=== PATIENT | female | born 1960 | race Caucasian/White ===

== ENCOUNTER → 2021-01-12 | Outpatient (CLI) | payer MEDICARE, OTHER ==
[~2021-01-12] MED LIST: CARAFATE1 GM/10 ML PO; PROTONIX40 MG PO; ZOFRAN ODT 4 MG4 MG PO
== END ==
LOC: RAD 12:31
DX: M79.18 Myalgia, other site (principal)
CPT/HCPCS: 72220

== ENCOUNTER → 2021-04-23 | Outpatient (CLI) | payer MEDICARE, OTHER | LOC: MAMO 10:00 → US 10:00 → MAMO 10:16 | DX: N63.20 Unspecified lump in the left breast, unspecified quadrant (principal) | CPT/HCPCS: 76641-LT; 77066; G0279 ==

== ENCOUNTER 2021-06-20 08:42 | Emergency (ER) | payer MEDICARE, OTHER ==
[2021-06-20 09:25] LABS: HEMOGLOBIN 12.3 gm/dl (12.3-15.3); RED BLOOD COUNT 4.05 M/UL (4.00-5.10); WHITE BLOOD COUNT 10.4 K/UL (4.5-11.0)
[2021-06-20 09:53] LABS: BUN/CREATININE RATIO 13 (0-10)
[2021-06-20] MEDS ORDERED: K-TAB ER20 MEQ PO (10:45)
[2021-06-20] MEDS ORDERED: HUMIBID LA TAB600 MG PO (10:45)
[2021-06-20] MEDS ORDERED: AUGMENTIN400 MG/5 M PO (10:54)
== END 2021-06-20 12:10 | disposition home or self-care (01) ==
LOC: ER1 08:42
PROVIDERS: Physician Assistant
DX: J06.9 Acute upper respiratory infection, unspecified (principal); E87.6 Hypokalemia; Z88.5 Allergy status to narcotic agent; Z20.822 Contact with and (suspected) exposure to COVID-19
CPT/HCPCS: 71045; 80048; 82550; 82553; 83615; 83874; 84484; 85025; 86140; 94760; 96372; 99283; J1100; U0002

== ENCOUNTER → 2021-06-30 | Outpatient (CLI) | payer MEDICARE, OTHER ==
[~2021-06-30] MED LIST changes: +AUGMENTIN400 MG/5 M PO; +HUMIBID LA TAB600 MG PO; +K-TAB ER20 MEQ PO
[2021-06-30 13:17] LABS: HEMOGLOBIN 10.9 gm/dl (12.3-15.3); RED BLOOD COUNT 3.62 M/UL (4.00-5.10)
[2021-06-30 13:35] LABS: BUN/CREATININE RATIO 17 (0-10)
== END ==
LOC: LAB 11:02
PROVIDERS: Physician Assistant
DX: Z13.1 Encounter for screening for diabetes mellitus (principal); R53.83 Other fatigue; E55.9 Vitamin D deficiency, unspecified; E78.5 Hyperlipidemia, unspecified; E03.9 Hypothyroidism, unspecified
CPT/HCPCS: 36415; 80053; 80061; 84439; 84443; 85025

== ENCOUNTER → 2021-12-01 | Outpatient (CLI) | payer MEDICARE, OTHER | LOC: RAD 09:26 | DX: R06.02 Shortness of breath (principal) | CPT/HCPCS: 71046 ==

== ENCOUNTER → 2022-01-11 | Outpatient (CLI) | payer MEDICARE, OTHER | LOC: HEART 5 13:11 | DX: R06.02 Shortness of breath (principal); R91.8 Other nonspecific abnormal finding of lung field; R94.2 Abnormal results of pulmonary function studies | CPT/HCPCS: 94060; 94729 ==

== ENCOUNTER → 2022-03-03 | Outpatient (CLI) | payer MEDICARE, OTHER | LOC: RAD 12:08 | DX: R06.00 Dyspnea, unspecified (principal); R91.8 Other nonspecific abnormal finding of lung field | CPT/HCPCS: 71046 ==